=== PATIENT | male | born 1990 | race American Indian/Alaskan Native ===

== ENCOUNTER 2019-02-21 16:20 | Emergency (ER) | payer SELFPAY ==
[2019-02-21 16:27] VITALS: BP 132/84
--- NOTE | 2019-02-21 17:31 | Emergency Department Report ---
ED Male HPI - General Chief complaint: Urogenital-Male Stated complaint: STD TESTING Time Seen by Provider: 02/21/19 17:09 Source: patient Mode of arrival: Ambulatory Limitations: No Limitations - History of Present Illness Initial comments: This is a 28-year-old -[place] male who presents to the emergency room with penile discharge for 2 days. Patient states his girlfriend informed him of positive diagnosis of gonorrhea. He denies testicular enlargement or pain, pelvic pain, back pain, dysuria, urinary frequency, and urgency. MD Complaint: penile discharge Onset/Timin -: days(s) Location: penis Radiation: none Severity: mild Consistency: constant Improves with: none Worsens with: sexual intercourse new sexual partner discharge. denies: swelling, mass, urinary retention, blood in urine, dysuria, fever, nausea/vomiting - Related Data Sexually active: Yes Previous Rx's Medication Instructions Recorded Last Taken Type Ciprofloxacin HCl [Ciprofloxacin 500 mg PO Q12H #14 tab 04/01/16 Unknown Rx TAB] Azithromycin [Zithromax Tri-Fredy] 2,000 mg PO ONCE #4 tablet 02/21/19 Unknown Rx Cefixime [Suprax] 400 mg PO ONCE #1 capsule 02/21/19 Unknown Rx DOXYCYCLINE Hyclate [Vibramycin 100 mg PO Q12HR #14 capsule 02/21/19 Unknown Rx CAP] Allergies Allergy/AdvReac Type Severity Reaction Status Date / Time No Known Allergies Allergy Verified 04/01/16 01:07 ED Review of Systems ROS: Stated complaint: STD TESTING Other details as noted in HPI Constitutional: denies: chills, fever Respiratory: denies: cough, shortness of breath, wheezing Cardiovascular: denies: chest pain, palpitations Gastrointestinal: denies: abdominal pain, nausea, diarrhea Genitourinary: discharge. denies: urgency, dysuria Musculoskeletal: denies: back pain, joint swelling, arthralgia Skin: denies: rash, lesions Neurological: denies: headache, weakness, paresthesias Psychiatric: denies: anxiety, depression ED Past Medical Hx - Social History Smoking Status: Never Smoker Substance Use Type: None - Medications Home Medications: Home Medications Medication Instructions Recorded Confirmed Last Taken Type Ciprofloxacin HCl [Ciprofloxacin 500 mg PO Q12H #14 tab 04/01/16 Unknown Rx TAB] Azithromycin [Zithromax Tri-Fredy] 2,000 mg PO ONCE #4 tablet 02/21/19 Unknown Rx Cefixime [Suprax] 400 mg PO ONCE #1 capsule 02/21/19 Unknown Rx DOXYCYCLINE Hyclate [Vibramycin 100 mg PO Q12HR #14 capsule 02/21/19 Unknown Rx CAP] ED Physical Exam - General Limitations: No Limitations General appearance: alert, in no apparent distress - Respiratory Respiratory exam: Present: normal lung sounds bilaterally. Absent: respiratory distress - Cardiovascular Cardiovascular Exam: Present: regular rate, normal rhythm. Absent: systolic murmur, diastolic murmur, rubs, gallop - GI/Abdominal GI/Abdominal exam: Present: soft, normal bowel sounds. Absent: distended, tenderness, guarding, rebound, rigid - Back Exam Back exam: Absent: CVA tenderness (R), CVA tenderness (L) - Neurological Exam Neurological exam: Present: alert, oriented X3, normal gait - Psychiatric Psychiatric exam: Present: normal affect, normal mood - Skin Skin exam: Present: warm, dry, intact, normal color. Absent: rash ED Course Vital Signs 02/21/19 16:25 Temperature 98.2 F Pulse Rate 76 Respiratory 18 Rate Blood Pressure 132/84 O2 Sat by Pulse 100 Oximetry ED Medical Decision Making - Medical Decision Making This is a 28-year-old -[place] male who presents with penile irritation and discharge for 2 days. Patient was examined by me. Vitals are stable and in no acute distress. No labs ordered. Start suprax, doxycycline, and azithromycin for ureteritis. Discharged home in stable condition. Discussed prevention options. F/U with PCP or Health Department. Critical care attestation.: If time is entered above; I have spent that time in minutes in the direct care of this critically ill patient, excluding procedure time. ED Disposition Clinical Impression: Exposure to STD, Penile discharge, Urethritis Disposition: [id number] TO HOME OR SELFCARE Is pt being admited?: No Does the pt Need Aspirin: No Condition: Stable Instructions: Sexually Transmitted Diseases (ED), Safe Sex (ED), Nonspecific Urethritis in Men (ED) Additional Instructions: Avoid drinking alcohol while taking antibiotics and for 24 hours after completion. Continue safe sexual intercourse. Follow-up with health department or primary care doctor from the referral list below for full STD screening. Prescriptions: Cefixime [Suprax] 400 mg PO ONCE #1 capsule DOXYCYCLINE Hyclate [Vibramycin CAP] 100 mg PO Q12HR #14 capsule Azithromycin [Zithromax Tri-Fredy] 2,000 mg PO ONCE #4 tablet Referrals: [facility] [place] - 3-5 Days [facility] [Outside] - 3-5 Days [facility] [Outside] - 3-5 Days [facility] [Outside] - 3-5 Days Forms: STI Treatment and Prevention Time of Disposition: 17:43
== END 2019-02-21 18:09 | disposition home or self-care (01) ==
LOC: ED 16:20
DX: R36.9 Urethral discharge, unspecified (principal); N34.2 Other urethritis; Z20.2 Contact with and (suspected) exposure to infections with a predominantly sexual mode of transmission; Z79.899 Other long term (current) drug therapy
CPT/HCPCS: 99282